=== PATIENT | female | born 1995 ===

== ENCOUNTER 2017-09-16 20:28 | Emergency (ER) | payer SELFPAY ==
[2017-09-16 20:53] VITALS: BMI 23.8
--- NOTE | 2017-09-16 20:53 | ED PDOC ---
Arrival/HPI - General Time Seen by Provider: 09/16/17 20:37 Historian: Patient - History of Present Illness Narrative History of Present Illness (Text): 09/16/17 20:53 Gabriella Buckner is a 22 year old female, P:1, currently 3 months , whose past medical history includes appendectomy and nephrolithiasis, who presents to the emergency department complaining of abdominal cramping with associated lower back discomfort for the past few days. Patient also complaining of sore throat and left ear pain. Patient denies any fever, chills, chest pain, shortness of breath, nausea, vomiting, diarrhea, urinary symptoms, neck pain, headache, dizziness, or any other complaints. Symptom Onset: Gradual Symptom Course: Unchanged Activities at Onset: Light Context: Home Past Medical History - Provider Review Nursing Documentation Reviewed: Yes Family/Social History - Physician Review Nursing Documentation Reviewed: Yes Family/Social History: Unknown Family HX Allergies/Home Meds Allergies/Adverse Reactions: Allergies No Known Allergies Allergy (Verified 09/16/17 20:47) Review of Systems - Physician Review All systems were reviewed & negative as marked: Yes - Review of Systems Constitutional: Normal. absent: Fevers Eyes: Normal ENT: Sore Throat, Other (+left ear pain) Respiratory: Normal. absent: SOB, Cough, Wheezing Cardiovascular: Normal. absent: Chest Pain Gastrointestinal: Abdominal Pain (+suprapubic). absent: Diarrhea, Nausea, Vomiting Genitourinary Female: Normal. absent: Dysuria, Frequency, Hematuria, Urine Output Changes Musculoskeletal: Back Pain. absent: Neck Pain Skin: Normal. absent: Rash Neurological: Normal. absent: Headache, Dizziness Endocrine: Normal Hemo/Lymphatic: Normal Psychiatric: Normal Physical Exam Vital Signs Reviewed: Yes Vital Signs Temp Pulse Resp BP Pulse Ox 09/16/17 22:31 99.7 F H 128 H 20 100/52 L 100 09/16/17 20:30 98 F 130 H 18 114/58 L 99 Temperature: Afebrile Blood Pressure: Normal Pulse: Regular Respiratory Rate: Normal Appearance: Positive for: Well-Appearing, Non-Toxic, Comfortable Pain Distress: None Mental Status: Positive for: Alert and Oriented X 3 - Systems Exam Head: Present: Atraumatic, Normocephalic Pupils: Present: PERRL Extroacular Muscles: Present: EOMI Conjunctiva: Present: Normal Ears: Present: Normal, NORMAL TM, Normal Canal. No: Erythema, TM Bulging, Fluid , TM Perf Mouth: Present: Moist Mucous Membranes Pharnyx: Present: ERYTHEMA (Erythema to posterior pharynx). No: EXUDATE, TONSILS ENLARGED, Peritonsilar Swelling, Uvular Deviation, Muffled/Hoarse Voice , Strider, Soft Palate/Uvular Edema Nose (External): Present: Atraumatic Nose (Internal): Present: Normal Inspection Neck: Present: Normal Range of Motion Respiratory/Chest: Present: Clear to Auscultation, Good Air Exchange. No: Respiratory Distress, Accessory Muscle Use Cardiovascular: Present: Regular Rate and Rhythm, Normal S1, S2. No: Murmurs Abdomen: No: Tenderness, Distention, Peritoneal Signs Back: Present: Normal Inspection Upper Extremity: Present: Normal Inspection. No: Cyanosis, Edema Lower Extremity: Present: Normal Inspection. No: Edema Neurological: Present: GCS=15, CN II-XII Intact, Speech Normal Skin: Present: Warm, Dry, Normal Color. No: Rashes Psychiatric: Present: Alert, Oriented x 3, Normal Insight, Normal Concentration Medical Decision Making ED Course and Treatment: 09/16/17 20:53 Impression: 22 year old female complaining of abdominal cramping, lower back discomfort, sore throat, and left ear pain. Plan: -- US Age -- Labs, Beta-HCG, lipase -- UA -- Reassess and disposition Progress Notes: 09/16/17 22:57 US Age shows: Fetus: There is a single living intrauterine . Gestational age: Measurements correlate with a mean gestational age of 13 weeks 4 days. The estimated date of delivery 03/20/2018. Heart rate: Embryonic/ cardiac activity is identified, at a rate of 172 beats per minute. Placenta: The placenta is located posteriorly and is normal. The cervix is closed measuring 4 cm. IMPRESSION: Live intrauterine , with no evidence of early complications. 09/17/17 00:05 On re-evaluation, pt feels better, in no acute distress. I have discussed the plan with the patient, who expresses understanding. Patient in agreement with the plan to be discharged home. Patient is stable for discharge. Patient was instructed to follow up with physician or return if symptoms persist/worsen or new concerning symptoms arise. - Lab Interpretations Lab Results: 09/16/17 21:30 09/16/17 21:30 Lab Results 09/16/17 21:30: WBC 10.1, RBC 4.59, Hgb 11.8 L, Hct 35.0 L, MCV 76.3 L, MCH 25.7 , MCHC 33.7, RDW 13.8, Plt Count 183, MPV 10.3 09/16/17 21:30: Beta HCG, Quant [id number] H 09/16/17 21:30: Sodium 136, Potassium 4.1, Chloride 103, Carbon Dioxide 21, Anion Gap 16, BUN 3 L, Creatinine 0.5 L, Est GFR ( Amer) > 60, Est GFR ( Non-Af Amer) > 60, Random Glucose 95, Calcium 9.4, Total Bilirubin 0.3, AST 19, ALT 18, Alkaline Phosphatase 59, Total Protein 7.6, Albumin 4.1, Globulin 3.5, Albumin/Globulin Ratio 1.2, Lipase 31 09/16/17 21:30: Urine Color Dark yellow, Urine Appearance Clear, Urine pH 8.0, Ur Specific Weldon 1.020, Urine Protein 30 H, Urine Glucose (UA) Negative, Urine Ketones Negative, Urine Blood Negative, Urine Nitrate Negative, Urine Bilirubin Negative, Urine Urobilinogen 0.2, Ur Leukocyte Esterase Negative, Urine RBC 0 - 2, Urine WBC Negative, Ur Epithelial Cells 4 - 5, Urine Bacteria Small I have reviewed the lab results: Yes - RAD Interpretation Radiology Orders: 09/16/17 20:55 AGE [US] Stat [employer] Police Officer: Radiologist - Medication Orders Current Medication Orders: Discontinued Medications Acetaminophen (Tylenol 325mg Tab) 650 mg PO STAT STA Stop: 09/16/17 22:40 Last Admin: 09/16/17 22:48 Dose: 650 mg MAR Pain/Vitals Document 09/16/17 22:48 ANTONELLA (Rec: 09/16/17 22:48 LA [id number]) Pain Reassessment Is This A Pain ReAssessment? No Sleep Is patient sleeping during reassessment? No Presence of Pain Presence of Pain Yes Pain Scale Used Pain Scale Used Numeric Location Pain Location Body Site Back Intensity 5 Scale Used Numeric Amoxicillin (Amoxil 500 Mg Cap) 500 mg PO STAT STA PRN Reason: Protocol Stop: 09/16/17 23:12 Last Admin: 09/17/17 00:25 Dose: 500 mg - Katherine Statement The provider has reviewed the documentation as recorded by the Katherine Link Provider Katherine Attestation: All medical record entries made by the Ankitaibdaniel were at my direction and personally dictated by me. I have reviewed the chart and agree that the record accurately reflects my personal performance of the history, physical exam, medical decision making, and the department course for this patient. I have also personally directed, reviewed, and agree with the discharge instructions and disposition. 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
[2017-09-16 21:44] LABS: HEMOGLOBIN 11.8 g/dL (12.0-16.0); MEAN CELL VOLUME 76.3 fl (80.0-105.0); MEAN CORPUSCULAR HEMOGLOBIN 25.7 pg (25.0-35.0); MEAN CORPUSCULAR HGB CONC 33.7 g/dl (31.0-37.0); MEAN PLATELET VOLUME 10.3 fl (7.0-11.0); RBC 4.59 10^6/uL (3.5-6.1); RED CELL DISTRIBUTION WIDTH 13.8 % (11.5-14.5); WHITE BLOOD COUNT 10.1 10^3/ul (4.5-11.0)
[2017-09-16 21:45] LABS: URINE BILIRUBIN NEGATIVE (NEGATIVE); URINE BLOOD NEGATIVE (NEGATIVE); URINE GLUCOSE (UA) NEGATIVE (NEGATIVE); URINE LEUKOCYTE ESTERASE NEGATIVE Leu/uL (NEGATIVE); URINE PROTEIN 30 mg/dL (<30 mg/dL); URINE UROBILINOGEN 0.2 E.U./dL (<1 E.U./dL)
[2017-09-16 21:46] LABS: URINE APPEARANCE CLEAR (CLEAR); URINE COLOR DARK YELLOW (YELLOW)
[2017-09-16 21:52] LABS: URINE RBC 0 - 2 /hpf (0-2); URINE WBC NEGATIVE /hpf (0-6)
[2017-09-16 21:53] LABS: URINE BACTERIA SMALL (NEG)
[2017-09-16 22:04] LABS: ALB/GLOB RATIO 1.2 (1.1-1.8); ALBUMIN 4.1 g/dL (3.0-4.8); ALT/SGPT 18 U/L (7-56); AST/SGOT 19 U/L (14-36); BLOOD UREA NITROGEN 3 mg/dL (7-21); CALCIUM 9.4 mg/dL (8.4-10.5); GFR AFRICAN-AMERICAN > 60; GFR NON-AFRICAN AMERICAN > 60; LIPASE 31 U/L (23-300)
[2017-09-16 22:34] VITALS: BP 100/52
[2017-09-17 00:49] VITALS: PULSE 88; RESP 18; TEMP 98.9; O2SAT 98
--- NOTE | 2017-09-17 13:00 | US ---
Date of service: 09/16/2017 PROCEDURE: Obstetrical ultrasound HISTORY: abdominal cramps COMPARISON: None TECHNIQUE: Transabdominal FINDINGS: There is a single live intrauterine gestation. The heart rate is 172 beats per minute. A grossly normal quantity of amniotic fluid is visualized. The fetus is in variable presentation. A posterior placenta is identified. There is no evidence of placenta previa. The cervix is long and closed and measures 3.9 cm. biometry demonstrates a gestational age of 13 weeks 4 days. The REY by ultrasound is 03/20/2018. anatomy could not be adequately assessed due to the early stage of gestation. IMPRESSION: Single live intrauterine gestation of approximately 13 weeks 4 days. heart rate 172. Variable presentation. Posterior placenta. No previa. Cervix long and closed. The preliminary findings for this examination were reported by [facility] at 10:53 p.m. on 09/16/2017.. There is concurrence of this report with the preliminary findings.
== END 2017-09-17 00:48 | disposition home or self-care (01) ==
LOC: ED 20:28
DX: O26.891 Other specified pregnancy related conditions, first trimester (principal); R10.9 Unspecified abdominal pain; J02.9 Acute pharyngitis, unspecified; Z3A.13 13 weeks gestation of pregnancy